=== PATIENT | male | born 1950 | race Caucasian/White ===

== ENCOUNTER → 2017-12-06 | Outpatient (CLI) | payer OTHER ==
--- NOTE | 2017-12-06 15:46 | Diagnostic Imaging Report ---
TECHNIQUE: Computed tomography imaging of the right femur was performed WITHOUT injected contrast. HISTORY: Assess healing status post fixation COMPARISON: None available. FINDINGS: Status post open reduction internal fixation with intramedullary ravindra and femoral neck screw for prior trochanteric femur fracture. The fracture is healed with complete osseous bridging. A small remnant cleft medial aspect of the lesser trochanter coronal image 37. Scattered atrophy of the posterior thigh most prominent involving the semimembranosus muscle. No soft tissue masses or collections. Within the pelvis extensive diverticulosis. IMPRESSION: Healed trochanter femur fracture status post fixation. No complication. Signed by: Dr. Ilan Mortensen M.D. on 12/06/2017 3:42 PM
== END ==
LOC: CT 12:41
PROVIDERS: ATTEND Orthopaedic Surgery Orthopaedic Trauma
DX: S72.142K Displaced intertrochanteric fracture of left femur, subsequent encounter for closed fracture with nonunion (principal)

== ENCOUNTER → 2021-10-18 | Outpatient (CLI) | payer OTHER | LOC: MRI 11:40 | PROVIDERS: ATTEND Podiatrist Foot & Ankle Surgery | DX: E11.69 Type 2 diabetes mellitus with other specified complication (principal); M86.072 Acute hematogenous osteomyelitis, left ankle and foot; E11.621 Type 2 diabetes mellitus with foot ulcer; L97.529 Non-pressure chronic ulcer of other part of left foot with unspecified severity ==